=== PATIENT | male | born 1990 | race Two or more races ===

== ENCOUNTER 2025-01-13 10:38 | Emergency (ER) | payer OTHER ==
[~2025-01-13] VITALS: Ht 170.2 cm; Wt 77.1 kg
[2025-01-13] MEDS ORDERED: ALBU18HF2 INH (11:09)
[2025-01-13 12:17] VITALS: BP 120/68; TEMP 97.8; O2SAT 99
== END 2025-01-13 12:18 | disposition home or self-care (01) ==
LOC: ER 10:38
DX: J20.8 Acute bronchitis due to other specified organisms (principal); B97.89 Other viral agents as the cause of diseases classified elsewhere
CPT/HCPCS: A4606; A4663